=== PATIENT | male | born 1980 | race Caucasian/White ===

== ENCOUNTER 2019-12-10 07:02 | Emergency (ER) | payer BC ==
--- OUTSIDE RECORDS SUMMARY | 2019-12-10 07:11 | XMS REPORT | Continuity of Care Document ---
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 [phone] Problems Active Problems Provider Date No current problems or disability Onset: 09/19/2011 Social History Type Date Description Comments Sex Unknown ETOH Use Occasionally consumes alcohol Tobacco Use Start: Unknown Patient has never smoked Allergies, Adverse Reactions, Alerts Description No Known Drug Allergies Medications Description No Active Medications Immunizations CPT Code Status Date Vaccine Lot # [id number] Given 05/23/2014 Tdap (Adacel) Ages 7 And Above Only [id number] Given 07/23/2004 Immunization Td 7 Yrs Or Older [id number] Refused 09/22/2019 Influenza Vac, Quadrivalent, Split, 0.5mL Dosage, Im Use [id number] Refused 03/29/2019 Influenza Vac, Quadrivalent, Split, 0.5mL Dosage, Im Use Vital Signs Date Vital Result Comment 10/11/2019 7:59am Weight 200.00 lb Heart Rate 84 /min BP Systolic 130 mmHg BP Diastolic 74 mmHg Respiratory Rate 17 /min Height 72 inches 6'0" (03/2019) BMI (Body Mass Index) 27.1 kg/m2 09/22/2019 4:01pm Weight 204.00 lb Heart Rate 78 /min BP Systolic 144 mmHg BP Diastolic 86 mmHg BP Systolic Recheck 138 mmHg BP Diastolic Recheck 84 mmHg Respiratory Rate 17 /min Height 72 inches 6'0" (03/2019) BMI (Body Mass Index) 27.7 kg/m2 Results Test Acquired Date Facility Test Result H/L Range Note CBS 09/11/2019 [facility] White Blood 6.8 K/uL Normal 3.4-10.5 1 W/Automated (315)- - Count Diff Red Blood Count 5.17 M/uL Normal 4.20-5.80 Hemoglobin 17.2 gm/dL High 12.8-17.0 Hematocrit 49.4 % High 38.0-48.0 Mean Cell Volume 95.6 fl Normal 80.0-96.0 Mean Corpuscular HGB 33.3 pg High 27.0-33.0 Mean Corpuscular HGB Conc 34.8 g/dL Normal 31.7-36.0 Platelet Count 258 K/uL Normal 155-360 Red Cell Distri Width SD 43.9 fl Normal 36-51 Red Cell Distri Width %CV 12.4 % Normal 11.6-15.8 Mean Platelet Volume 9.6 fl Normal 6.6-10.6 Neut% 81.5 % High 33.0-73.0 Lymph % 12.0 % Low 20.0-42.0 [place] % 5.2 % Normal 0.0-10.0 Eo% 0.3 % Normal 0.0-6.6 Bas% 0.4 % Normal 0.0-1.1 Immature Grans 0.6 % Normal 0.0-5.0 NRBC % 0.0 /100WBC < 10/ 100 WBC Neut# 5.52 K/uL Normal 1.8-7.0 Lymph # 0.81 K/uL Low 1.0-4.0 [place] # 0.35 K/uL Normal 0.0-0.8 Eos # 0.02 K/uL Normal 0.0-0.5 Baso # 0.03 K/uL Normal 0.0-0.1 Immature Grans Absolute 0.04 K/uL NRBC # 0.00 K/uL 1 HEART POUNDING Procedures Date Code Description Status 12/18/2018 14176274 Colonoscopy Completed Medical Devices Description No Information Available Encounters Type Date Location Provider Dx Diagnosis Office Visit 09/22/2019 Jose Meek DO R07.9 Chest pain, 4:00p unspecified E66.3 Overweight R00.2 Palpitations R53.83 Other fatigue R14.1 Gas pain B35.1 Tinea unguium Z68.27 Body mass index (BMI) 27.0-27.9, adult Assessments Date Code Description Provider 10/11/2019 R14.1 Gas pain Jose Gaines, 10/11/2019 Z86.010 Personal history of colonic polyps Jose Gaines, DO 10/11/2019 R20.9 Unspecified disturbances of skin sensation Jose Gaines, DO 10/11/2019 I73.00 Raynaud's syndrome without gangrene Jose Gaines, DO 10/11/2019 J01.90 Acute sinusitis, unspecified Jose Gaines, DO 10/11/2019 F41.9 Anxiety disorder, unspecified Jose Gaines, DO 10/11/2019 Z68.27 Body mass index (BMI) 27.0-27.9, adult Jose Gaines, DO 09/22/2019 R07.9 Chest pain, unspecified Jose Gaines, DO 09/22/2019 E66.3 Overweight Jose Gaines, DO 09/22/2019 R00.2 Palpitations Jsoe Gaines, DO 09/22/2019 R53.83 Other fatigue Jose Gaines, DO 09/22/2019 R14.1 Gas pain Jose Gaines, DO 09/22/2019 B35.1 Tinea unguium Jose Gaines, DO 09/22/2019 Z68.27 Body mass index (BMI) 27.0-27.9, adult Jose Gaines DO Plan of Treatment Future Appointment(s):03/31/2020 9:00 am - Jose GainesDO at [facility]10/11/2019 - Jose Gaines, DOR14.1 Gas painComments:Condition reviewed in detail with the patient. Reviewed different treatment options. -I recommendedthe patient start using probiotics or gas pills. -I recommended the patient to eat proper and keep himself well hydrated.-If the symptoms persist or worsen, we will send him to Dr. Shah and/or would obtain Imaging for further determination of the symptoms. -We will continue to monitorFollow up:Follow up as needed.Z86.010 Personal history of colonic polypsComments:Will repeat colonoscopy in [address] Shah.R20.9 Unspecified disturbances of skin sensationComments:Reviewed the condition in detail with the patient. We will watch it at the present time. If the symptoms persist or worsen, he will call or come back. We will continue to monitor.I73.00 Raynaud's syndrome without uvsjtkwoH94.90 Acute sinusitis, unspecifiedComments:Reviewed the condition in detail with the patient. Sinuses are getting better at the present time.We will watch it at the present time. If the symptoms persist or worsen, he will call or come back. We will continue to monitor.F41.9 Anxiety disorder, cuiguvcewirP42.27 Body mass index (BMI) 27.0-27.9, adultComments:BMI is at 27.1. The patient should try to lose weight with low-calorie diet and exercises. We willcontinue to monitor weight and BMI periodically. Functional Status Description No Information Available Mental Status Description No Information Available Referrals Description No Information Available
[2019-12-10 07:19] VITALS: BP 135/93
--- NOTE | 2019-12-10 07:24 | UC ---
Eye Complaint HPI - HPI Summary HPI Summary: 39 yo male with right eye redness/irritation and discharge x 1 days runny nose and nasal congestion x mos no eye pain or photophobia no contact lens use - History of Current Complaint Chief Complaint: UCEye Stated Complaint: RIGHT EYE Time Seen by Provider: 12/10/19 07:11 Hx Obtained From: Patient Onset/Duration: Gradual Onset Timing: Constant Severity Initially: Mild Severity Currently: Mild Pain Intensity: 0 Pain Scale Used: 0-10 Numeric Location of Injury: Conjunctiva Aggravating Factor(s): Nothing Alleviating Factor(s): Nothing Associated Signs And Symptoms: Positive: Drainage (Purulent) - Risk Factors Penetrating Injury Risk Factor: Negative Globe Rupture Risk Factors: Negative Acute Glaucoma Risk Factors: Negative Optic Artery Occlusion Risk Factors: Negative - Allergies/Home Medications Allergies/Adverse Reactions: Allergies Allergy/AdvReac Type Severity Reaction Status Date / Time No Known Allergies Allergy Verified 12/10/19 07:13 Home Medications: Home Medications Dm/PE/Acetaminophen/Doxylamine [Vicks Dayquil/Nyquil Cold] 2 cap PO Q6H PRN 03/25 [History Confirmed 12/10/19] Fluticasone NASAL SPRAY 50MCG* [Flonase NASAL SPRAY 50MCG*] 2 spray BOTH NARES BID #1 btl 12/10/19 [Rx] Polymyx/Trimethoprim OPTH* [Polytrim OPHTH*] 1 - 2 drop RIGHT EYE QID #1 btl 03/25 [Rx] PMH/Surg Hx/FS Hx/Imm Hx Previously Healthy: Yes - Surgical History Surgical History: Yes Surgery Procedure, Year, and Place: Colonscopy - Family History Known Family History: Positive: Hypertension - Social History Alcohol Use: Rare Substance Use Type: None Smoking Status (MU): Never Smoked Tobacco Review of Systems All Other Systems Reviewed And Are Negative: Yes Constitutional: Positive: Negative Skin: Positive: Negative Eyes: Positive: Drainage, Eye Redness ENT: Positive: Negative Respiratory: Positive: Negative Cardiovascular: Positive: Negative Gastrointestinal: Positive: Negative Genitourinary: Positive: Negative Motor: Positive: Negative Neurovascular: Positive: Negative Musculoskeletal: Positive: Negative Neurological/Mental Status: Positive: Negative Psychological: Positive: Negative Physical Exam Triage Information Reviewed: Yes Appearance: Well-Appearing, No Pain Distress, Well-Nourished Vital Signs: Initial Vital Signs Temp 98.6 F 12/10/19 07:11 Pulse 92 12/10/19 07:11 Resp 16 12/10/19 07:11 BP 135/93 12/10/19 07:11 Pulse Ox 100 12/10/19 07:11 Vital Signs Reviewed: Yes Eyes: Positive: Conjunctiva Inflamed, Discharge ENT: Positive: Hearing grossly normal, Pharynx normal, Nasal congestion, TMs normal, Uvula midline. Negative: Tonsillar swelling, Tonsillar exudate, Trismus , Muffled voice, Hoarse voice, Sinus tenderness Neck: Positive: Supple, Nontender, No Lymphadenopathy Respiratory: Positive: Lungs clear, Normal breath sounds, No respiratory distress, No accessory muscle use Cardiovascular: Positive: RRR, No Murmur Musculoskeletal: Positive: ROM Intact, No Edema Neurological: Positive: Alert Psychological: Positive: Normal Response To Family Skin Exam: Normal Eye Complaint Course/Dx - Differential Dx/Diagnosis Provider Diagnosis: Elevated BP without diagnosis of hypertension, Conjunctivitis, right eye, Rhinitis Discharge ED - Sign-Out/Discharge Documenting (check all that apply): Patient Departure All imaging exams completed and their final reports reviewed: No Studies - Discharge Plan Condition: Stable Disposition: HOME Prescriptions: Fluticasone NASAL SPRAY 50MCG* [Flonase NASAL SPRAY 50MCG*] 2 spray BOTH NARES BID #1 btl Polymyx/Trimethoprim OPTH* [Polytrim OPHTH*] 1 - 2 drop RIGHT EYE QID #1 btl Patient Education Materials: Conjunctivitis (ED) Referrals: Jose Gaines DO [Primary Care Provider] - Additional Instructions: BP 135/93 needs to be followed at your PCPs You can use ZADITOR eye drops OTC for eye irritation - Billing Disposition and Condition Condition: STABLE Disposition: Home
== END 2019-12-10 07:37 | disposition home or self-care (01) ==
LOC: UCCORT 07:02
DX: H10.9 Unspecified conjunctivitis (principal); J31.0 Chronic rhinitis; R03.0 Elevated blood-pressure reading, without diagnosis of hypertension
CPT/HCPCS: 99202; G0463